=== PATIENT | female | born 1975 | race Caucasian/White ===

== ENCOUNTER → 2016-07-30 | Outpatient (CLI) | payer BC, OTHER ==
[~2016-07-30] MED LIST: AMT50 PO; MISCCAP80 PO; MULT-506 PO; PRLSR20 PO; VITAMIN B PO; ZOLP5TAB PO
== END | disposition home or self-care (01) ==
LOC: C.PAPS 11:11
PROVIDERS: ATTEND Obstetrics & Gynecology
DX: Z01.419 Encounter for gynecological examination (general) (routine) without abnormal findings (principal)